=== PATIENT | female | born 1950 | race Caucasian/White ===

== ENCOUNTER → 2019-01-21 | Day surgery (SDC) | payer MEDICARE ==
[2019-01-18 14:57] LABS: BASOPHILS % 0.3 % (0.0-1.0); EOSINOPHILS % 0.5 % (0.0-6.0); HEMATOCRIT 39.4 % (34.2-44.1); HEMOGLOBIN 12.6 g/dL (12.0-16.0); LYMPHOCYTES # (AUTO) 1.8 (1.0-3.2); LYMPHOCYTES % 26.7 % (18.0-39.1); MEAN CORPUSCULAR HEMOGLOBIN 29.2 pg (28-32); MEAN CORPUSCULAR VOLUME 91.2 fL (81-99); MONOCYTES # (AUTO) 0.4 (0.2-0.8); MONOCYTES % 5.8 % (4.4-11.3); NEUTROPHILS # (AUTO) 4.4 (2.1-6.9); NEUTROPHILS % 66.5 % (38.7-80.0); PLATELET COUNT 285 x10e3/uL (140-360); RED BLOOD COUNT 4.32 x10e6/uL (3.6-5.1); RED CELL DISTRIBUTION WIDTH 14.1 % (11.7-14.4)
[2019-01-18 15:17] LABS: ANION GAP 13.3 mmol/L (8-16); BLOOD UREA NITROGEN 10 mg/dL (7-26); BUN/CREATININE RATIO 16 (6-25); CALCIUM 9.5 mg/dL (8.4-10.2); CARBON DIOXIDE 25 mmol/L (22-29); CHLORIDE 105 mmol/L (98-107); CREATININE, SERUM 0.63 mg/dL (0.57-1.11); EST GLOMERULAR FILTRATION RATE > 60 ML/MIN (60-); GLUCOSE 88 mg/dL (74-118); POTASSIUM 4.3 mmol/L (3.5-5.1); SODIUM 139 mmol/L (136-145)
--- NOTE | 2019-01-18 15:51 | Diagnostic Imaging Report ---
EXAMINATION: CHEST 2 VIEWS INDICATION: Pre-operative COMPARISON: None FINDINGS: TUBES and LINES: None. LUNGS: The lung volumes are normal. No focal consolidation or pulmonary edema. PLEURA: No pleural effusion or pneumothorax. HEART AND MEDIASTINUM: The cardiomediastinal silhouette is normal in size and contour. Atherosclerotic calcifications of the thoracic aorta. BONES AND SOFT TISSUES: No acute fracture or dislocation. UPPER ABDOMEN: No free air under the diaphragm. IMPRESSION: No focal pneumonia or pulmonary edema. Signed by: Dallin Pardo MD on 01/18/2019 3:48 PM
[~2019-01-21] MED LIST: AVAPRO150 MG PO; BUPIVACAINE HCL 0.5% INJ 30 ML VIAL INJ ONE; CALCIUM; CEFAZOLIN SOD 1 GM/NS 50ML 100 ML IV ONE; DEXAMETHASONE SOD PHOS INJ 4 MG/ML VIAL ONE; FENTANYL CITRATE/PF 100MCG/2 ML INJ ONE; FOSAMAX70 MG PO; KETOROLAC TROMETHAMINE 30 MG/ML VIAL ONE; LIDOCAINE HCL 2% LOCAL INJ 5 ML SDV VIAL INJ ONE; MEPERIDINE HCL INJ 25 MG/ML VIAL ONE; MIDAZOLAM HCL 2 MG/2 ML VIAL ONE; MORPHINE SULFATE INJ 4 MG/ML INJ 1ML ONE; MULTI-VITAMIN1 EACH; NEOSTIGMINE 1 MG/ML 10ML VIAL ONE; ONDANSETRON HCL INJ 2MG/ML 2ML 2 MG/ML VIAL ONE; PROPOFOL IV EMULSION 10 MG/ML 20 ML VIAL ONE; SEVOFLURANE INHAL SOLN 250 ML PEN BTL ONE; SYNTHROID75 MCG PO; VITAMIN D PO
--- OUTSIDE RECORDS SUMMARY | 2019-01-21 07:36 | XMS REPORT ---
Author Author [facility] Address Unknown Phone Unavailable Care Team Providers Care Satellite Television Installer Name Role Phone VALENCIA HANSON Unavailable Unavailable Problems This patient has no known problems. Allergies, Adverse Reactions, Alerts This patient has no known allergies or adverse reactions. Medications This patient has no known medications. Results Test Description Test Time Test Comments Text Results Atomic Results Result Comments CHEST 2 VIEWS 2019-01-18 15:45:00 [place] [address] Patient Name: TEMO MONET MR #: [id number] : 1950 Age/Sex: 68/F Req #: [id number] Adm Physician: Ordered by: VALENCIA HANSON DPM Report #: [id number] Location: OR Room/Bed: Procedure: [id number] DX/CHEST 2 VIEWS Exam Date: 01/18/19 Exam Time: 1452 REPORT STATUS: Signed EXAMINATION: CHEST 2 VIEWS INDICATION: Pre-operative COMPARISON: None FINDINGS: TUBES and LINES: None. LUNGS: The lung volumes are normal. No focal consolidation or pulmonary edema. PLEURA: No pleural effusion or pneumothorax. HEART AND MEDIASTINUM: The cardiomediastinal silhouette is normal in size and contour. Atherosclerotic calcifications of the thoracic aorta. BONES AND SOFT TISSUES: No acute fracture or dislocation. UPPER ABDOMEN: No free air under the diaphragm. IMPRESSION: No focal pneumonia or pulmonary edema. Signed by: Jackie Pardo MD on 01/18/2019 3:48 PM Dictated By: JACKIE PARDO MD [id number] Transcribed By: MARCO ANTONIO on 01/18/19 1548 COPY TO: VALENCIA HANSON DPM
--- OUTSIDE RECORDS SUMMARY | 2019-01-21 07:36 | XMS REPORT | Encounter Summary ---
Author Organization Unknown Address [address] [place] [address] Phone [phone] Reason for Visit Medical Complaint; rash, x 2 days Instructions 1. Contact dermatitis Medrol (Raymundo) 4 mg tablets in a dose pack Discussion Note: None recorded. Patient educational handouts: No information available. Plan of Care Patient Instructions Do not scratch or rub the area of the sting. Apply cool compress orand ice packto area 3-4 times a day at least 15 minutes each time. Take and OTC antihistamine to helping with itching and relieve swelling. Claritin can be taken daily for itching and Benadryl at night for itching/swelling (causes drowsiness). Calamine lotion or an OTC hydrocortisone cream can be placed on the area to help with swelling. If there is no visible improvement in 48 hours or the symptoms worsen (increased redness/swelling, severe pain, drainage or fever) please follow up with PCP or Urgent Care. Reminders Provider Appointments None recorded. Lab None recorded. Referral None recorded. Procedures None recorded. Surgeries None recorded. Imaging None recorded. Medications Name Start Date alendronate 70 mg tablet irbesartan 300 mg tablet Medrol (Raymundo) 4 mg tablets in a dose pack Take by oral route. Synthroid 75 mcg tablet Medications Administered None recorded. Vitals Height Weight BMI Blood Pressure 5 ft 4 in 180 lbs 30.9 138/80 Lab Results None recorded. Allergies Name Reaction Severity Onset Codeine Headache Problems Name Status Onset Date Source Influenza Active Encounter Acute Urinary Tract Infection Active Encounter Contact Dermatitis Active Encounter Increased Frequency of Urination Active Encounter Procedures Date Name Performed by Hysterectomy Information not available Tonsillectomy Information not available Vaccine List Vaccine Type influenza, seasonal, intradermal, preservative free 06/16/2014 Social History Smoking Status Never Smoker Past Encounters 03/08/2016 Contact Dermatitis AKASH Delgado: [address] [place] [address], Ph. History of Present Illness Repp-Vszsjci-Wdshm-Skin Lesion-Bite 1 Reported By: Patient HPI: Location: ; buttocks (above crack) Started as a small bump and she started stractching and picking at it and now small red rash to area. Quality: itchy, red, localized. Severity: mild. Duration: has noted for <1 week. Onset/Timing: abrupt onset. Context: no new detergents or skin products, no one else with similar rash, no sting or bite, scratching. Aggravating factors: nothing makes it worse. Alleviating factors: ; Used OTC hydrocortisone. Associated Symptoms: no fever, no cold symptoms, no nausea, no vomiting, no diarrhea, no urinary symptoms Review of Systems Basic Reported By: Patient Constitutional: Constitutional: no fever Eyes: Eyes: no eye complaints Xvzf-Xtas-Lrhjb-Throat: Ears: no ear complaints. Nose: no nose/sinus problems. Mouth/Throat: no sore throat, no bleeding gums, no mouth complaints, no teeth problems Cardiovascular: Cardiovascular: no chest pain, no shortness of breath, no known heart murmur Respiratory: Respiratory: no cough, no wheezing, no shortness of breath Gastrointestinal: Gastrointestinal: no abdominal pain, no vomiting / diarrhea Genitourinary: Genitourinary: no urinary complaints, no discharge Musculoskeletal: Musculoskeletal: no muscle aches, no muscle weakness, no arthralgias/joint pain, no back pain Skin: Skin: no abnormal / changing mole, no jaundice, rash, itching Neurologic: Neurologic: no loss of consciousness, no weakness, no numbness, no seizures, no dizziness, no headaches Physical Exam Adult Basic Constitutional: General Appearance: healthy-appearing, well-nourished, well-developed. Level of Distress: NAD. Ambulation: ambulating normally Psychiatric: Mental Status: active and alert. Orientation: to time, to place, to person Skin: Inspection and palpation: no lesions, no ulcer, no abnormal nevi, no induration, no nodules, good turgor, no jaundice, rash
--- OUTSIDE RECORDS SUMMARY | 2019-01-21 07:36 | XMS REPORT | Continuity of Care Document ---
Author Author [facility] Address Unknown Phone Unavailable Care Team Providers Care Ecotherapist Name Role Phone [facility] KnowRe Information Kinsley Unavailable Unavailable Problems Problem Status Onset Date Classification Date Reported Comments Source Contact dermatitis 03/08/2016 Diagnosis 03/08/2016 [facility] Influenza Problem 03/08/2016 [facility] Acute Urinary Tract Infection Problem 03/08/2016 [facility] Contact Dermatitis Problem 03/08/2016 [facility] Increased Frequency of Urination Problem 03/08/2016 [facility] Medications Medication Details Route Status Patient Instructions Ordering Provider Order Date Source Alendronic acid 70 MG Oral Tablet alendronate 70 mg tablet Active [facility] irbesartan 300 MG Oral Tablet irbesartan 300 mg tablet Active [facility] Medrol (Raymundo) 4 mg tablets in a dose pack Medrol (Raymundo) 4 mg tablets in a dose pack Take by oral route. Active [facility] Levothyroxine Sodium 0.075 MG Oral Tablet [Synthroid] Synthroid 75 mcg tablet Active [facility] Allergies, Adverse Reactions, Alerts Substance Category Reaction Severity Reaction type Status Date Reported Comments Source Codeine Headache Allergy to substance 08/17/2013 [facility] Immunizations Immunization Date Given Site Status Last Updated Comments Source influenza, seasonal, intradermal, preservative free 06/17/2014 completed [facility] Results No Data Provided for This Section Pathology Reports No Data Provided for This Section Diagnostic Reports No Data Provided for This Section Consultation Notes No Data Provided for This Section Discharge Summaries No Data Provided for This Section History and Physicals No Data Provided for This Section Vital Signs Vital Sign Value Date Comments Source Diastolic (mm Hg) 80 03/08/2016 [facility] Height 64 03/08/2016 [facility] Systolic (mm Hg) 138 03/08/2016 [facility] Weight 180 03/08/2016 [facility] Encounters Location Location Details Encounter Type Encounter Number Reason For Visit Attending Provider ADM Date DC Date Status Source [place] - [facility] - [id number] Kristy Roach, SIGNING TEACHER: [address] [place] [address], Ph. [id number] Sherlyn Kevin 03/08/2016 [facility] Procedures Procedure Code Date Perfomer Comments Source Hysterectomy [facility] Tonsillectomy [facility] Assessment and Plan No Data Provided for This Section Plan of Care No Data Provided for This Section Social History Social History Date Source Smoking Status Never Smoker 08/17/2013 [facility] Family History No Data Provided for This Section Advance Directives No Data Provided for This Section Functional Status No Data Provided for This Section
--- OUTSIDE RECORDS SUMMARY | 2019-01-21 07:36 | XMS REPORT | Clinical Summary ---
Author Author [facility] Address Unknown Phone Unavailable Care Team Providers Care Dough Brake Machine Operator Name Role Phone Zuleika Urena MD PCP Allergies Comments Active Allergy Reactions Severity Noted Date tendonitis tendonitis tendonitis Ciprocinonide 01/05/2014 tendonitis Ciprofloxacin Other (See 12/09/2016 Comments) Headaches, intolerance Other reaction(s): Headache Codeine Other (See Low 10/01/2011 Comments) Egg Derived 09/15/2012 Penicillins Rash Low 10/01/2011 Medications End Date Status Medication Sig Dispensed Refills Start Date Active RETIN-A MICRO PUMP 0.08 % APPLY QHS 0 gel with pump 7 Active ergocalciferol (VITAMIN TK 1 C PO 1 D2) 50,000 unit capsule WEEKLY 9 11/19/2019 Active oxybutynin XL (DITROPAN Take 1 tablet 30 tablet 3 XL) 5 MG 24 hr (5 mg total) 9 tabletIndications: by mouth Urinary frequency daily. 12/15/2019 Active levothyroxine (SYNTHROID) Take 1 tablet 30 tablet 11 50 mcg tabletIndications: (50 mcg 9 Hypothyroidism, total) by unspecified type mouth daily. Active irbesartan (AVAPRO) 150 Take 1 tablet 90 tablet 3 MG tabletIndications: (150 mg 9 Essential hypertension total) by mouth daily. 11/19/2018 Discontinued cholecalciferol, vitamin Take 2,000 0 D3, (VITAMIN D3) 2,000 Units by unit capsule capsule mouth daily. 11/19/2018 Discontinued alendronate (FOSAMAX) 70 Take 1 tablet 12 tablet 3 MG tabletIndications: (70 mg total) 8 Osteoporosis, unspecified by mouth once osteoporosis type, a week. Take unspecified pathological in the fracture presence morning with a glass of water 02/18/2018 Discontinued SYNTHROID 75 mcg tablet Take 1 tablet 30 tablet 0 (75 mcg 8 total) by mouth every morning. 02/01/2018 Discontinued irbesartan (AVAPRO) 300 Take 1 tablet 30 tablet 0 MG tablet (300 mg 8 total) by mouth nightly. 02/01/2018 Discontinued irbesartan (AVAPRO) 150 Take 150 mg 0 MG tablet by mouth daily. 01/19/2019 Discontinued irbesartan (AVAPRO) 150 Take 1 tablet 90 tablet 3 MG tabletIndications: (150 mg 8 Essential hypertension total) by mouth daily. 12/15/2018 Discontinued SYNTHROID 75 mcg tablet Take 1 tablet 90 tablet 3 (75 mcg 8 total) by mouth every morning. Active Problems Problem Noted Date Abnormal mammogram 01/04/2018 Hypertension 01/23/2017 Hypothyroidism 01/23/2017 Overview: Overview: brand only Osteopenia 11/24/2013 Encounters Care Team Description Date Type Specialty [facility] Benavides [place] Essential hypertension 01/19/2019 Refill Internal Medicine Zuleika Urena MD Hypothyroidism, unspecified type (Primary Dx); Bradycardia; Vitamin D deficiency 12/15/2018 Office Visit Internal Medicine Zuleika Urena MD 12/09/2018 Telephone Internal Medicine Zuleika Urena MD Fatigue, unspecified type (Primary Dx); Urinary frequency 11/19/2018 Office Visit Internal Medicine Piper Benavides [place] 02/18/2018 Refill Internal Medicine Zuleika Urena MD Essential hypertension (Primary Dx); Acquired hypothyroidism 02/01/2018 Office Visit Internal Medicine after 01/20/2018 Immunizations Name Dates Previously Given Next Due FLUZONE QUAD INTRADERMAL 06/17/2014 PF Influenza Trivalent 04/25/2016, 04/20/2015 Influenza Whole 04/07/2014 Pneumococcal Conjugate 03/16/2017 13-Valent Td 12/27/2010 Tdap 02/09/2012 Tetanus 09/13/2001 Varicella 12/22/2011 Zoster 01/30/2013 Family History Medical History Relation Name Comments Stroke Father Throat cancer Father Dementia Mother Osteoporosis Mother Stroke Mother Relation Name Status Comments Father heart attack (Age 90) Mother Social History Date Tobacco Use Types Packs/Day Years Used Never Smoker Smokeless Tobacco: Never Used Alcohol Use Drinks/Week oz/Week Comments Yes 5 Glasses of 3.0 weekly wine Sex Assigned at Date Recorded Not on file Industry Job Start Date Occupation Not on file Not on file Not on file Travel End Travel History Travel Start No recent travel history available. Last Filed Vital Signs Time Taken Vital Sign Reading 12/15/2018 1:53 PM CDT Blood Pressure 139/89 12/15/2018 1:53 PM CDT Pulse 62 12/15/2018 1:44 PM CDT Temperature 36.7 C (98.1 F) - Respiratory Rate - 12/15/2018 1:44 PM CDT Oxygen Saturation 99% - Inhaled Oxygen - Concentration 12/15/2018 1:44 PM CDT Weight 79.4 kg (175 lb) 12/15/2018 1:44 PM CDT Height 158.8 cm (5' 2.5") 12/15/2018 1:44 PM CDT Body Mass Index 31.5 Plan of Treatment Health Maintenance Due Date Last Done Comments SHINGLES VACCINES (#1) 2000 INFLUENZA VACCINE 02/03/2019 04/25/2016, 04/20/2015, 06/17/2014, Additional history exists 65+ PNEUMOCOCCAL VACCINE 08/11/2019 03/16/2017 Postponed from 03/16/2018 (2 of 2 - PPSV23) (Not Indicated) BREAST CANCER SCREENING 01/14/2020 01/13/2018, 01/13/2018, 01/04/2018, Additional history exists COLONOSCOPY SCREENING 11/03/2025 11/04/2015 Procedures Comments Procedure Name Priority Date/Time Associated Diagnosis THYROID STIMULATING Routine 12/15/2018 Hypothyroidism, HORMONE 3:26 PM CDT unspecified type VITAMIN D 25 HYDROXY Routine 12/15/2018 Vitamin D deficiency LEVEL 3:26 PM CDT ECG 12-LEAD Routine 12/15/2018 Bradycardia 2:46 PM CDT CBC WITH PLATELET AND Routine 11/19/2018 Fatigue, unspecified type DIFFERENTIAL 1:53 PM CDT THYROID STIMULATING Routine 11/19/2018 Fatigue, unspecified type HORMONE 1:53 PM CDT POC URINALYSIS DIPSTICK Routine 11/19/2018 Urinary frequency 12:55 PM CDT THYROID STIMULATING Routine 02/01/2018 Acquired hypothyroidism HORMONE 10:09 AM CDT ECG 12-LEAD Routine 02/01/2018 Essential hypertension 9:47 AM CDT after 01/20/2018 Results * Vitamin D 25 hydroxy level (12/15/2018 3:26 PM CDT) Vitamin D, 56 30 - 100 ng/mL [facility] 25-hydroxy Comment: DIAGNOSTICS Vitamin D [place] Status 25-OH Vitamin D: Deficiency: <20 ng/mL Insufficiency: 20 - 29 ng/mL Optimal: > or=30 ng/mL For 25-OH Vitamin D testing on patients on D2-supplementation and patients for whom quantitation of D2 and D3 fractions is required, the QuestAssureD(TM) 25-OH VIT D, (D2,D3), LC/MS/MS is recommended: order code 74018 (patients >2yrs). For more information on this test, go to: http://education.Placeling.BrightLine/faq/MTJ261 (This link is being provided for informational/educational purposes only.) Specimen Blood Resulting Agency Comment Performing Organization Information: Site ID: [id number] Name: [facility] Address: [address] [place] [phone] Director: Simona Dumont Performing Organization Address [facility] Phone Number [employer] [place] [phone] * Thyroid stimulating hormone (12/15/2018 3:26 PM CDT) Only the most recent of 3 results within the time period is included. Pathologist [facility] TSH 1.11 0.40 - 4.50 mIU/L [employer] [place] Specimen Resulting Agency Comment Performing Organization Information: Site ID: [id number] Name: [facility] Address: [address] [place] [phone] Director: Simona Dumont Performing Organization Address [facility] Phone Number [employer] [place] [phone] * ECG 12 lead (12/15/2018 2:46 PM CDT) Only the most recent of 2 results within the time period is included. Ventricular 54 [facility] rate Atrial rate 54 [facility] [place] interval 184 [facility] QRSD interval 94 [facility] QT interval 456 [facility] QTC interval 432 [facility] P axis 1 65 [facility] QRS axis 1 67 [facility] T wave axis 70 [facility] EKG impression Sinus bradycardia-Otherwise [facility] MUSE normal ECG-In automated comparison with ECG of 01-FEB-2018 09:47,-No significant change was found- Specimen Narrative Performed At Performing Organization Address City/State/Zipcode Phone Number [facility] [address] [place] [address] * CBC with platelet and differential (11/19/2018 1:53 PM CDT) Pathologist [facility] WBC 6.1 3.8 - 10.8 [facility] Thousand/uL [facility] [place] RBC 4.30 3.80 - 5.10 [facility] Million/uL [facility] [place] HGB 13.0 11.7 - 15.5 g/dL [facility] [place] HCT 38.6 35.0 - 45.0 % [facility] [place] MCV 89.8 80.0 - 100.0 fL [facility] [place] MCH 30.2 27.0 - 33.0 pg [facility] [place] MCHC 33.7 32.0 - 36.0 g/dL [facility] [place] RDW 12.3 11.0 - 15.0 % [facility] [place] Platelet count 295 140 - 400 [facility] Thousand/uL [facility] [place] MPV 10.3 7.5 - 12.5 fL [facility] [place] Neutrophils, 4,898 1,500 - 7,800 [facility] absolute cells/uL [facility] [place] Lymphocytes, 982 850 - 3,900 cells/uL [facility] absolute [facility] [place] Monocytes, 183 (L) 200 - 950 cells/uL [facility] absolute [facility] [place] Eosinophils, 18 15 - 500 cells/uL [facility] absolute [facility] [place] Basophils, 18 0 - 200 cells/uL [facility] absolute [facility] [place] Neutrophils 80.3 % [facility] [place] Lymphocytes 16.1 % [facility] [place] Monocytes 3.0 % [facility] [place] Eosinophils 0.3 % [facility] [place] Basophils + RC 0.3 % [employer] [place] Specimen Blood Resulting Agency Comment Performing Organization Information: Site ID: [id number] Name: [facility] Address: [address] [place] [address] Director: Simona Dumont Performing Organization Address City/State/Zipcode Phone Number [facility] [employer] [place] [address] [place], [place] [phone] * POC urinalysis dipstick (11/19/2018 12:55 PM CDT) Color urine, Yellow POC Clarity urine, Clear POC Glucose urine, Negative Negative POC Bilirubin Negative Negative urine, POC Ketones urine, Negative Negative POC Specific 1.010 1.005 - 1.030 gravity urine, POC Blood urine, Negative Negative POC pH urine, POC 7.0 5.0, 5.5, 6.0, 6.5, 7.0, 7.5, 8.0, 8.5 Protein urine, Negative Negative POC Urobilinogen <2.0 <2.0 urine, POC Nitrite urine, Negative Negative POC Leukocyte Negative Negative esterase urine, POC Specimen Urine after 01/20/2018 Insurance Type Payer Benefit Subscriber ID Effective Phone Address Plan / Dates Group Medicare MEDICARE MEDICARE xxxxxxxxxxx 2015-P ARTIS, PART A AND resent [place] B Commercial AARP AARP xxxxxxxxx-xx 2018-P SUPPLEMENT resent Advance Directives Patient has advance care planning documents on file. For more information, [employer] [facility] contact: Antonio Jamil [address] [place] [address]
[2019-01-21 12:00] VITALS: BP 140/61
--- NOTE | 2019-01-24 11:51 | Operative Report ---
DATE OF PROCEDURE: 01/21/2019 SURGEON: Wellington Mclean DPM PREOPERATIVE DIAGNOSES: Multiple foot deformities including bone spur of 3rd digit of left foot, soft tissue contractures of 2nd and 3rd metatarsophalangeal joints, plantar flexed metatarsal 4th met of left foot, painful hardware of 2nd and 3rd metatarsals of left foot with dorsal contracture. POSTOPERATIVE DIAGNOSES: Multiple foot deformities including bone spur of 3rd digit of left foot, soft tissue contractures of 2nd and 3rd metatarsophalangeal joints, plantar flexed metatarsal 4th met of left foot, painful hardware of 2nd and 3rd metatarsals of left foot with dorsal contracture. TITLE OF OPERATION: 1. Exostectomy of 3rd digit, left foot. 2. Release of soft tissue contractures and open reduction and internal fixation of 2nd and 3rd metatarsals of the left foot with pinning. 3. Elevating osteotomy of 4th metatarsal of left foot. 4. Removal of hardware of 2nd and 3rd metatarsals of the left foot. ANESTHESIA: General endotracheal. HEMOSTASIS: Left thigh tourniquet at 350 mmHg. PROCEDURE IN DETAIL: The patient was taken to the operating room in a mildly sedated state and placed on the operating table in supine position. Following induction of general anesthetic, the left lower extremity was elevated to 60 degrees to exsanguinate before inflating the pneumatic thigh tourniquet to 350 mmHg to create hemostasis. Left lower extremity was placed on the operating table to perform the following procedure. Procedure #1 is the exostectomy of 3rd digit of left foot. Linear incision was made overlying the prominent lateral aspect of the 3rd digit at the fusion site of the proximal interphalangeal joint level. This area was exposed and utilizing oscillating saw, the area was smoothed to the appropriate depth to allow for healing without prominence. The area was irrigated with copious amounts of sterile saline solution. Deep closure was 3-0 Vicryl and skin closure with 4-0 nylon. Procedure #2 is removal of hardware of 2nd and 3rd metatarsals of the left foot. Linear incision was made overlying the 2nd and 3rd metatarsals and the painful hardware was identified and removed utilizing standard technique. This having been accomplished, it was noted that the digits and extensor tendons were contracted around the old hardware thus creating imbalance. ORIF was performed of the 2nd and 3rd metatarsals by elongating the soft tissues and pinning in appropriate manner the digits. It was noted that the digital alignment was excellent after pinning. The 4th metatarsal was plantar flexed and 4th digit underlapping, therefore linear incision was made overlying the 4th met as well. This allowed for deliverance of the 4th metatarsal with the surgical site and the head was elevated with McGlamry elevator and the appropriate tools. This having been accomplished and appropriate positioning of the 4th digit being noted, all areas were irrigated with copious amounts of sterile saline solution. The pin in the 2nd metatarsal was then cut to its appropriate length. The areas of surgery were all blocked with 0.5 Marcaine and Decadron LA. A human tissue allograft was used to facilitate closure of the dorsal capsules in the areas where they were no longer adequately covered with soft tissue. The deep closure was 4-0 Vicryl and skin closure with 4-0 nylon. One incidental note is that many of the soft tissue structures had a significant amount of fibrosis and scarring surrounding the old surgery. Some of this was from Prolene, which was buried deep and in multiple areas holding tissues in contracted positions. With removal of Prolene as well as realignment of the digits, we are in hopes that overall digital alignment could be maintained. After closure and the pin being cut and bent, the appropriate becerra for repair was applied and the patient left the operating room with vital signs stable in apparent satisfactory condition having tolerated both the anesthetic and procedure very well. TEAGAN Doan/YAYO /[id number]
== END | disposition home or self-care (01) ==
LOC: OR 07:34
PROVIDERS: ATTEND Podiatrist Foot Surgery
DX: M24.575 Contracture, left foot (principal); T84.84XA Pain due to internal orthopedic prosthetic devices, implants and grafts, initial encounter; T84.498A Other mechanical complication of other internal orthopedic devices, implants and grafts, initial encounter; M79.672 Pain in left foot; Z01.810 Encounter for preprocedural cardiovascular examination; Z01.812 Encounter for preprocedural laboratory examination; Z01.811 Encounter for preprocedural respiratory examination; Z88.8 Allergy status to other drugs, medicaments and biological substances; Z91.048 Other nonmedicinal substance allergy status; Z82.49 Family history of ischemic heart disease and other diseases of the circulatory system; Z82.3 Family history of stroke; I10 Essential (primary) hypertension; I87.2 Venous insufficiency (chronic) (peripheral)
CPT/HCPCS: 20680; 28124; 28270 ×2; 28308; 36415; 71046; 80048; 85025; C1713 ×2; J0690; J1100; J1885; J2001; J2175; J2250; J2270; J2405; J2704; J2710; J3010; Q4100

== ENCOUNTER → 2019-07-22 | Day surgery (SDC) | payer MEDICARE ==
[2019-07-19 12:31] LABS: BASOPHILS % 0.4 % (0.0-1.0); EOSINOPHILS % 0.4 % (0.0-6.0); HEMATOCRIT 41.8 % (34.2-44.1); HEMOGLOBIN 13.4 g/dL (12.0-16.0); LYMPHOCYTES # (AUTO) 1.6 (1.0-3.2); LYMPHOCYTES % 29.5 % (18.0-39.1); MEAN CORPUSCULAR HEMOGLOBIN 29.8 pg (28-32); MEAN CORPUSCULAR HGB CONC 32.1 g/dL (31-35); MEAN CORPUSCULAR VOLUME 92.9 fL (81-99); MONOCYTES # (AUTO) 0.3 (0.2-0.8); MONOCYTES % 6.3 % (4.4-11.3); NEUTROPHILS # (AUTO) 3.3 (2.1-6.9); NEUTROPHILS % 63.2 % (38.7-80.0); PLATELET COUNT 294 x10e3/uL (140-360); RED CELL DISTRIBUTION WIDTH 13.6 % (11.7-14.4)
[~2019-07-22] MED LIST changes: -FENTANYL CITRATE/PF 100MCG/2 ML INJ ONE; +FISH OIL PO; +GLUCOSAMINE1000 MG PO; +METOCLOPRAMIDE HCL 10 MG/2ML VIAL ONE; -MIDAZOLAM HCL 2 MG/2 ML VIAL ONE; -MORPHINE SULFATE INJ 4 MG/ML INJ 1ML ONE; +VIT C PO
--- NOTE | 2019-07-22 07:11 | NUR ---
SPIRITUAL CARE - Pre-Surgery Assessment: Pt in bed. Pt's daughter at bedside. Pt reported supportive attention from family and friends. Intervention: I provided pastoral presence, hospitality, and sympathetic listening. I acquainted pt with availability of firestop/containment worker while hospitalized. Outcome: Pt expressed appreciation for visit. No need for follow up indicated at this time. SAND[facility]AL [facility] Spiritual Care Department O: [phone] Pager: [phone] ([phone] number calling from)
[2019-07-22 10:40] VITALS: BP 136/64
--- NOTE | 2019-07-22 18:26 | Operative Report ---
DATE OF PROCEDURE: 07/22/2019 SURGEON: Wellington Mclean DPM ROOM NUMBER: [facility]. PREOPERATIVE DIAGNOSIS: Underlapping fourth digit with hammertoe and contracture at the metatarsophalangeal joint. POSTOPERATIVE DIAGNOSIS: Underlapping fourth digit with hammertoe and contracture at the metatarsophalangeal joint. OPERATIONS: Arthroplasty of the fourth digit with possible resection of the proximal phalanx of the left foot. ANESTHESIA: General endotracheal. HEMOSTASIS: Left thigh tourniquet at 350 mmHg. PROCEDURE IN DETAIL: The patient was taken to the operating room in a mildly sedated state, placed on the operating table in supine position. Following induction of general anesthetic, left lower extremity was elevated to 60 degrees to exsanguinate before inflating the pneumatic thigh tourniquet to create hemostasis. Fluoroscopy was used and the left foot was evaluated. It was noted that pins and fusions are present in the second and third digits, which achieved excellent alignment postoperatively, however, the fourth, which had a previous fusion is underlapping the third digit on weightbearing. It looks straight on nonweightbearing, but with weightbearing it contracts over under the third digit. Decision had been made to take down the fusion site at the proximal interphalangeal joint. Release contractures from the metatarsophalangeal joint as well as the flexor tendon and re-evaluate a positional arthroplasty or arthrodesis that created a more permanent positioning. The patient has agreed to accept all risks inherent to the procedure, particularly with regard to vascular compromise as this digit has been operated on it numerous times before. The incision was made on the plantar aspect of the foot, where a flexor tenotomy as well as a medial tenotomy was performed. Capsulorrhaphy and capsulotomy as well to try and balance the flexor apparatus. It was noted when the foot was loaded, it was improved and certainly there was a greater ability to dorsiflex both when the foot was loaded and relaxed. However, it was felt that it was still underlapping, it would be a continued problem. Attention was then directed to the dorsal aspect of the foot, where a linear longitudinal incision was made overlying the head of the proximal phalanx, where it had been fused to the base of the intermediate phalanx. A inpsurx-occ-ahstigh takedown was performed of that and a small wedge removed, which allowed for positioning of the intermediate phalanx slightly more lateral groves from under the third metatarsal and digit. The digit was still noted to contract underneath and a dorsal incision was made overlying the metatarsophalangeal joint where the medial capsule was further released to allow for a more rectus attitude of the digit. This was successful in accomplishing the goal and K-wire was used in a retrograde technique to pin the positioning in the appropriate alignment, where the digit would no longer be able to underlap the third digit. The areas were all irrigated with copious amounts of sterile saline solution. Deep closure and tendon repair with 3-0 Vicryl. Skin closure with 4-0 nylon. The pin was cut and bent to its appropriate length and the release of the pneumatic thigh tourniquet showed a normal hyperemic flush to all digits of the left foot. The patient tolerated both anesthetic and procedure very well and will return to see me within 1 week postoperatively. TEAGAN Doan/YAYO /[id number]
== END | disposition home or self-care (01) ==
LOC: OR 06:05
PROVIDERS: ATTEND Podiatrist Foot Surgery
DX: M20.42 Other hammer toe(s) (acquired), left foot (principal); M24.575 Contracture, left foot; M20.5X2 Other deformities of toe(s) (acquired), left foot; E03.9 Hypothyroidism, unspecified; I10 Essential (primary) hypertension; K21.9 Gastro-esophageal reflux disease without esophagitis; Z88.3 Allergy status to other anti-infective agents; Z01.810 Encounter for preprocedural cardiovascular examination; Z01.812 Encounter for preprocedural laboratory examination
CPT/HCPCS: 28270; 28285; 36415; 85025; 93005; C1713; J0690; J1100; J1885; J2001; J2175; J2405; J2704; J2710; J2765; 76000